=== PATIENT | female | born 1940 | race Caucasian/White ===

== ENCOUNTER 2022-11-16 08:38 | Outpatient (CLI) | payer MEDICARE, BC, SELFPAY ==
--- NOTE | 2022-11-16 09:12 | W.ANESCHARGE ---
Anesthesia Charges Start Date/Time Anesthesia Start Date: 11/16/22 Anesthesia Start Time: 10:30 Stop Date/Time Anesthesia Stop Date: 11/16/22 Anesthesia Stop Time: 10:50 Summary Extremes of Age - Over 70 or under 1: MDA
--- NOTE | 2022-11-16 11:30 | W.ANESCHARGE ---
Anesthesia Charges Start Date/Time Anesthesia Start Date: 11/16/22 Anesthesia Start Time: 10:30 Stop Date/Time Anesthesia Stop Date: 11/16/22 Anesthesia Stop Time: 10:50 Summary Extremes of Age - Over 70 or under 1: [employer]
== END 2022-11-16 08:39 | disposition home or self-care (01) ==
PROVIDERS: PCP Family Medicine; Visit Provider Internal Medicine Gastroenterology
DX: R19.7 Diarrhea, unspecified (principal); K44.9 Diaphragmatic hernia without obstruction or gangrene
CPT/HCPCS: 00731; 43239; 88305; 99100; J2704; J3490